=== PATIENT | female | born 1995 | race Caucasian/White ===

== ENCOUNTER 2024-08-03 08:26 | Outpatient (CLI) | payer OTHER, SELFPAY | END 2024-08-03 08:27 | disposition home or self-care (01) | PROVIDERS: Visit Provider Family Medicine | DX: R00.2 Palpitations (principal); R04.0 Epistaxis; Z13.220 Encounter for screening for lipoid disorders | CPT/HCPCS: 80053; 80061; 82728; 84443 ==

== ENCOUNTER 2024-11-30 11:50 | Outpatient (CLI) | payer OTHER, SELFPAY | END 2024-11-30 11:51 | disposition home or self-care (01) | LOC: NFLDREF 12-06 10:47 | PROVIDERS: Visit Provider Obstetrics & Gynecology | DX: E28.2 Polycystic ovarian syndrome (principal) | CPT/HCPCS: 84144 ==

== ENCOUNTER 2025-01-02 09:17 | Outpatient (CLI) | payer OTHER, SELFPAY | END 2025-01-02 09:18 | disposition home or self-care (01) | LOC: NFLDREF 01-15 02:14 | PROVIDERS: PCP Family Medicine; Referring Provider Family Medicine; Visit Provider Obstetrics & Gynecology | DX: N91.5 Oligomenorrhea, unspecified (principal) | CPT/HCPCS: 84144 ==

== ENCOUNTER 2025-02-04 08:40 | Outpatient (CLI) | payer OTHER, SELFPAY | END 2025-02-04 08:41 | disposition home or self-care (01) | LOC: NFLDREF 02-09 03:21 | PROVIDERS: PCP Family Medicine; Referring Provider Family Medicine; Visit Provider Obstetrics & Gynecology | DX: N91.5 Oligomenorrhea, unspecified (principal) | CPT/HCPCS: 84144 ==

== ENCOUNTER 2025-03-06 09:35 | Outpatient (CLI) | payer OTHER, SELFPAY | END 2025-03-06 09:36 | disposition home or self-care (01) | LOC: NFLDREF 03-18 09:25 | PROVIDERS: PCP Family Medicine; Referring Provider Family Medicine; Visit Provider Obstetrics & Gynecology | DX: N91.5 Oligomenorrhea, unspecified (principal) | CPT/HCPCS: 84144 ==